=== PATIENT | male | born 1970 | race Two or more races ===

== ENCOUNTER 2022-12-27 09:42 | Emergency (ER) | payer MEDICAID, OTHER ==
[~2022-12-27] VITALS: Ht 162.6 cm; Wt 90.9 kg
[2022-12-27 10:04] LABS: Basophils # (auto) 0 10 ^3/uL (0-0.2); Basophils % (auto) 0.4 % (0.0-2.0); Eosinophils # (auto) 0.1 10 ^3/uL (0-0.8); Eosinophils % (auto) 0.7 % (0.0-7.0); Hematocrit 41.9 % (41.0-53.0); Hemoglobin 14.8 g/dL (13.5-17.5); Lymphocytes # (auto) 2.8 10 ^3/uL (0.4-5.4); Lymphocytes % (auto) 32.1 % (10.0-50.0); Mean Corpuscular Hemoglobin 29.7 pg (28.0-32.0); Mean Corpuscular Hgb Conc. 35.4 g/dL (32.0-36.0); Mean Corpuscular Volume 83.8 fL (80.0-100.0); Monocytes % (auto) 11.3 % (0.0-12.0); Neutrophils # (auto) 4.9 10 ^3/uL (1.6-8.6); Neutrophils % (auto) 55.5 % (37.0-80.0); Nucleated Red Blood Cells % 0.2 %; Red Cell Distribution Width 13.3 % (11.8-14.3); White Blood Cell 8.8 10^3/uL (4.4-10.8)
[2022-12-27 10:25] LABS: Alanine Aminotransferase 106 U/L (7-40); Albumin 4.4 g/dL (3.2-4.8); Alkaline Phosphatase 74 U/L (46-116); Anion Gap 10 (5-15); Aspartate Aminotransferase 294 U/L (13-40); BUN/Creatinine Ratio 20.9 (10.0-20.0); Blood Urea Nitrogen 24 mg/dL (9-23); Calcium 9.2 mg/dL (8.5-10.1); Carbon Dioxide 25 mmol/L (20-30); Chloride 99 mmol/L (98-107); Glucose 141 mg/dL (74-106); Sodium 134 mmol/L (136-145)
[2022-12-27 10:26] LABS: Bilirubin, Total 1.4 mg/dL (0.2-1.0); Total Protein 6.8 g/dL (5.7-8.2)
[2022-12-27 10:31] LABS: Potassium 2.9 mmol/L (3.5-5.1)
[2022-12-27] MEDS ORDERED: POTASSIUM EFFERVESENT TAB 25 MEQ PO ONE (10:45)
[2022-12-27 11:01] LABS: Magnesium 1.8 mg/dL (1.6-2.6)
[2022-12-27] MEDS ORDERED: POTA10TA51 PO (12:28)
[2022-12-27 15:35] VITALS: BP 133/76; PULSE 100; RESP 17; TEMP 97.6; O2SAT 99
== END 2022-12-27 15:37 | disposition home or self-care (01) ==
LOC: ER 09:42
DX: E87.6 Hypokalemia (principal); R00.2 Palpitations; I10 Essential (primary) hypertension; E11.9 Type 2 diabetes mellitus without complications; E78.5 Hyperlipidemia, unspecified; Z79.899 Other long term (current) drug therapy
CPT/HCPCS: 36415; 71045; 80053; 83690; 83735; 84132; 84484; 85025; 93005

== ENCOUNTER 2024-11-05 23:06 | Emergency (ER) | payer MEDICAID ==
[~2024-11-05] VITALS: Ht 162.6 cm; Wt 81.8 kg
[~2024-11-05 23:06] MED LIST: POTA-36 PO
--- NOTE | 2024-11-05 23:43 | ECG ---
[facility] Test Date: 2024-11-05 Test Time: 23:06:43 Pat Name: GEORGINA WADDELL Department: ED Room: Gender: M Photographer Model: ILYA : 1970 Requested By: EMERGENCY EMERGENCY Order Number: [id number] Reading MD: Franky Joiner Measurements Intervals [place] Rate: 96 P: 42 PA: 154 QRS: 30 QRSD: 91 T: 14 QT: 351 QTc: 444 Interpretive Statements Sinus rhythm Electronically Signed On 11-10-2024 22:42:32 PDT by Franky Joiner Please click the below link to view image of tracing.
--- NOTE | 2024-11-06 00:19 | DVH ---
EXAM: XY CHEST XRAY 1 VIEW CLINICAL HISTORY: cp TECHNIQUE: Single AP view of the chest WID: COMPARISON: XY CHEST PORTABLE on DOS: 12/27/22 FINDINGS: Lines and tubes: None Chest: The heart size and pulmonary vasculature is within normal limits. No pleural effusion, pneumothorax, or consolidation. The osseous structures are grossly intact. IMPRESSION: No acute cardiopulmonary abnormality.
[2024-11-06 00:28] LABS: Hematocrit 43.2 % (41.0-53.0); Hemoglobin 15.1 g/dL (13.5-17.5); Mean Corpuscular Hemoglobin 29.1 pg (28.0-32.0); Mean Corpuscular Volume 83.6 fL (80.0-100.0); Nucleated Red Blood Cells % 0.1 %
[2024-11-06 00:38] LABS: Chloride 100 mmol/L (98-107); Potassium 3.8 mmol/L (3.5-5.1)
[2024-11-06 00:39] LABS: Anion Gap 8 (5-15); Carbon Dioxide 27 mmol/L (20-31)
[2024-11-06 00:44] LABS: BUN/Creatinine Ratio 12.1 (10.0-20.0); Blood Urea Nitrogen 13 mg/dL (9-23)
[2024-11-06 00:45] LABS: Magnesium 2.1 mg/dL (1.6-2.6)
[2024-11-06 00:47] LABS: Sodium 135 mmol/L (136-145)
[2024-11-06 00:49] LABS: Calcium 8.3 mg/dL (8.7-10.4); Glucose 423 mg/dL (74-106)
[2024-11-06] MEDS: SODIUM CHLORIDE 0.9% 1,000 ML IV ONE (01:17)
[2024-11-06 01:20] VITALS: BP 155/96; RESP 18; TEMP 98.7; O2SAT 98
--- NOTE | 2024-11-06 01:50 | ED.PDOC ---
History of Present Illness HPI Comments 54-year-old male presents with chief complaint of chest pain, hypertension, and hyperglycemia. Significant history of noncompliance, DM, HLD, and HTN. Patient endorses on 1 day history of chest pressure and checking both his blood pressure and blood sugar is, today and noticing on them being elevated. Patient also reports a 2 day history of fever with associated nausea sensation. Patient denies having any shortness of breath, palpitation, fever, chills, nausea, vomiting, or further associated symptoms. REVIEW OF SYSTEMS: General: Fever, no chills, or fatigue HEENT: No sore throat, no earache, no congestion, no neck pain. Cardiac: Chest pain. No palpitations. Lungs: No shortness of breath, no cough. GI: Nausea, no vomiting, no diarrhea, no constipation, no abdominal pain : No dysuria, frequency, or urgency. No hematuria. Musculoskeletal: No joint pain , no joint swelling, no extremity edema. Hematology: Hypertension Endocrine: Hyperglycemia Skin: No rash, no itching. Neuro: No headache, no dizziness, no weakness PHYSICAL EXAM: General: Awake, alert and oriented. No acute distress. Skin: Skin in warm, dry and intact. Appropriate color for ethnicity. HEENT: The head is normocephalic and atraumatic. Conjunctivae are clear without exudates or hemorrhage. Sclera is non-icteric. EOM are intact. No signs of nystagmus. Eyelids are normal in appearance without swelling or lesions. Oral mucosa is pink and moist Neck: The neck is supple with normal range of motion. No JVD. Cardiac: Heart rate and rhythm are normal. No murmurs, gallops, or rubs are auscultated. Respiratory: No signs of respiratory distress. Lung sounds are clear in all lobes bilaterally without rales, rhonchi, or wheezes. Abdominal: Abdomen is soft, non-tender without distention, guarding or rigidity. Bowel sounds are present and normoactive in all four quadrants. Extremities: Upper and lower extremities are atraumatic in appearance without deformity or edema. Neurological: The patient is awake, alert and oriented to person, place, and time with normal speech. Speech is clear. There is no facial asymmetry. Psychiatric: Appropriate mood and affect. Good judgement and insight. Chief Complaint: Hyperglycemia Time Seen by MD: 23:45 Primary Care Provider: DENIES Reviewed Notes: Nurses Notes, Public Safety Dispatcher Notes, Medications, Allergies Allergies: Coded Allergies: NO KNOWN ALLERGIES (Unverified , 12/27/22) Home Meds Active Scripts Potassium Chloride (POTASSIUM CHLORIDE CR) 10 Meq Tb, 1 TAB PO DAILY, #30 TAB 5 Refills Prov:ROMARIO MOSCOSO MD 12/27/22 Information Source: Patient, Emergency Med Personnel Mode of Arrival: EMS Past Medical History PAST MEDICAL HISTORY: DM, High Lipids, HTN Surgical History: Denies all surgeries Family History Family History: Reviewed,noncontributory to illness Social History Smoker: Non-Smoker Alcohol: Denies ETOH Use Drugs: Denies Drug Use Lives In: Home Was a procedure done? Was a procedure done?: No EKG EKG : Pulse Rate (adult): 96 [place]: Normal Cardiac Rhythm: NSR Block: None Hypertrophy: None ST: Normal Comments No STEMI Differential Dx Considerations may include: Differential diagnoses considered include acute ischemic coronary syndrome, aortic dissection, cardiac tamponade, mediastinitis, pulmonary embolus, pneumothorax, tension pneumothorax, esophageal rupture, coronary artery vasospasm, myocarditis, pericarditis, pneumonia, pulmonary edema, esophageal tear, pancreatitis, aortic stenosis, dilated cardiomyopathy, hypertrophic cardiomyopathy, mitral valve prolapse, malignancy, pleuritis, pneumomediastinum, primary pulmonary hypertension, cholecystitis, esophageal spasm, esophagus, gastritis, GERD, peptic ulcer disease, costochondritis, fibromyalgia, rib fracture, herpes zoster, radicular syndromes, thoracic outlet syndrome, somatization. Hyperglycemia X-Ray, Labs, Meds, VS Vital Signs Date Time Temp Pulse Resp B/P (MAP) Pulse Ox O2 Delivery O2 Flow Rate FiO2 11/06/24 02:39 96 11/06/24 01:20 98.7 88 18 155/96 (115) 98 98.7 11/05/24 23:15 97.9 97 19 144/92 97 97.9 11/05/24 23:06 96 Lab Test 11/06/24 00:34 11/05/24 23:59 11/05/24 23:28 Range/Units Troponin I High Sensitivity < 3 L < 3 L </=54 ng/L White Blood Count 6.7 4.4-10.8 10^3/uL Red Blood Count 5.17 4.5-5.90 10^6/uL Hemoglobin 15.1 13.5-17.5 g/dL Hematocrit 43.2 41.0-53.0 % Mean Corpuscular Volume 83.6 80.0-100.0 fL Mean Corpuscular Hemoglobin 29.1 28.0-32.0 pg Mean Corpuscular Hemoglobin Concent 34.8 32.0-36.0 g/dL Red Cell Distribution Width 12.7 11.8-14.3 % Platelet Count 205 140-450 10^3/uL Mean Platelet Volume 7.5 6.9-10.8 fL Neutrophils (%) (Auto) 59.2 37.0-80.0 % Lymphocytes (%) (Auto) 30.0 10.0-50.0 % Monocytes (%) (Auto) 9.0 0.0-12.0 % Eosinophils (%) (Auto) 1.4 0.0-7.0 % Basophils (%) (Auto) 0.4 0.0-2.0 % Neutrophils # (Auto) 4.0 1.6-8.6 10 ^3/uL Lymphocytes # (Auto) 2.0 0.4-5.4 10 ^3/uL Monocytes # (Auto) 0.6 0-1.3 10 ^3/uL Eosinophils # (Auto) 0.1 0-0.8 10 ^3/uL Basophils # (Auto) 0 0-0.2 10 ^3/uL Nucleated Red Blood Cells 0.1 % Sodium Level 135 L 136-145 mmol/L Potassium Level 3.8 3.5-5.1 mmol/L Chloride Level 100 98-107 mmol/L Carbon Dioxide Level 27 20-31 mmol/L Anion Gap 8 5-15 Blood Urea Nitrogen 13 9-23 mg/dL Creatinine 1.07 0.700-1.30 mg/dL Glomerular Filtration Rate Calc 83 >90 mL/min BUN/Creatinine Ratio 12.1 10.0-20.0 Serum Glucose 423 *H 74-106 mg/dL Calcium Level 8.3 L 8.7-10.4 mg/dL Magnesium Level 2.1 1.6-2.6 mg/dL B-Type Natriuretic Peptide 3.01 0-100 pg/mL Beta-Hydroxybutyric Acid 0.199 < 0.4 mmol/L POC Glucose 451 *H 70-106 mg/dl Current Medications Medications (Trade) Dose Ordered Sig/Kiarra Route Start Time Stop Time Status Last Admin Sodium Chloride 1,000 ml @ 1,000 mls/hr Q1H ONCE IV 11/06/24 00:00 11/06/24 00:59 DC 11/06/24 01:[address] [address] Ph: [phone] DIAGNOSTIC IMAGING Diagnostic Imaging Report : [id number] Signed PATIENT: GEORGINA WADDELL ACCT: [id number] UNIT: [id number] : 1970 LOC: ER ROOM / BED: / AGE / SEX: 54 / M ADM STATUS: REG ER SERVICE 061 ORDERING PHYSICIAN: ANN HUTSON MD PROCEDURE(s): CXR1 - CHEST XRAY 1 VIEW REASON: cp ORDER NUMBER(s): [id number], ACCESSION NUMBER(s): [id number] EXAM: XY CHEST XRAY 1 VIEW CLINICAL HISTORY: cp TECHNIQUE: Single AP view of the chest WID: COMPARISON: XY CHEST PORTABLE on DOS: 12/27/22 FINDINGS: Lines and tubes: None Chest: The heart size and pulmonary vasculature is within normal limits. No pleural effusion, pneumothorax, or consolidation. The osseous structures are grossly intact. IMPRESSION: No acute cardiopulmonary abnormality. ATED BY: DAE CHIU MD DICTATED DATE/TIME: 11/06/2416 SIGNED BY: DAE CHIU MD SIGNED DATE/TIME: 11/06/2416 CC: Time of 1ST Reevaluation: 00:15 Reevaluation 1ST: Unchanged Patient Education/Counseling: Need For Follow Up Family Education/Counseling: No Family Present SEPSIS Sepsis Screen Date sepsis recognized/suspect: Nov 05, 2024 Time Sepsis recognized/suspect: 2316 Recent Procedure: No On Antibiotic Therapy: No Respiratory Rate >20: No Heart Rate >90: No Temp<36 C (96.8 F) or >38.3 C: No SBP <90 or MAP <65 mmHG: No New Acute Mental Status Change: No Is the patient on CPAP, BIPAP,: No Physician Orders Chest Xray 1 View (11/05/24 23:49) Urinalysis (11/05/24 23:49) Vital Signs Date Time Temp Pulse Resp B/P (MAP) Pulse Ox O2 Delivery O2 Flow Rate FiO2 11/06/24 02:39 96 11/06/24 01:20 98.7 88 18 155/96 (115) 98 98.7 11/05/24 23:15 97.9 97 19 144/92 97 97.9 11/05/24 23:06 96 Laboratory Tests Test 11/05/24 23:59 White Blood Count 6.7 10^3/uL (4.4-10.8) Medications Medications Dose Ordered Sig/Kiarra Route Start Time Stop Time Status Last Admin Dose Admin Sodium Chloride 1,000 ml @ 1,000 mls/hr Q1H ONCE IV 11/06/24 00:00 11/06/24 00:59 DC 11/06/24 01:17 Departure 1 Departure Time of Disposition: 01:48 Impression: Primary Impression: Chest pain Additional Impression: Hyperglycemia Disposition: HOME / SELF CARE / HOMELESS Condition: Stable Additional Instructions: ED DISCHARGE INSTRUCTIONS Instructions: Please read all instructions provided in this packet carefully. Although you have been discharged from the Emergency Department, this does not mean that you have a "clean bill of health". No definitive diagnosis for your symptoms has been made today. It is possible that you are in the process of developing a serious illness. This is why you must return to the ED without fail if any new or worsening symptoms (especially if your symptoms include chest pain, trouble breathing, abdominal pain, fever, headache, confusion, trouble seeing, or trouble walking) It is also very important that you see a primary care provider (PCP) within the next 3-5 days to follow up. If you are unable to get an appointment, return to the ED for re-evaluation. CHEST PAIN EDUCATION There are many things that can cause chest pain. Some are not serious and will get better on their own in a few days. But some kinds of chest pain need more testing and treatment. Your doctor may have recommended a follow-up visit in the next few days. If you are not getting better, you may need more tests or treatment. Even though your doctor has released you, you still need to watch for any problems. The doctor carefully checked you, but sometimes problems can develop later. If you have new symptoms or if your symptoms do not get better, get medical care right away. If you have worse or different chest pain or pressure that lasts more than 5 minutes or you passed out (lost consciousness), call 911 or seek other emergency help right away. A medical visit is only one step in your treatment. Even if you feel better, you still need to do what your doctor recommends, such as going to all suggested follow-up appointments and taking medicines exactly as directed. This will help you recover and help prevent future problems. How can you care for yourself at home? Rest until you feel better. Take your medicine exactly as prescribed. Call your doctor if you think you are having a problem with your medicine. Do not drive after taking a prescription pain medicine. When should you call for help? Call 911 if: You passed out (lost consciousness). You have severe difficulty breathing. You have symptoms of a heart attack. These may include: Chest pain or pressure, or a strange feeling in your chest. Sweating. Shortness of breath. Nausea or vomiting. Pain, pressure, or a strange feeling in your back, neck, jaw, or upper belly or in one or both shoulders or arms. Lightheadedness or sudden weakness. A fast or irregular heartbeat. After you call 911, the earth boring machine operator may tell you to chew 1 adult-strength or 2 to 4 low-dose aspirin. Wait for an ambulance. Do not try to drive yourself. Call your doctor now or seek immediate medical care if: You have any trouble breathing. You have new or different chest pain. You are dizzy or lightheaded, or you feel like you may faint. Watch closely for changes in your health, and be sure to contact your doctor if you do not get better as expected. Current as of: October 24, 2023 Author: [employer] Staff? Diabetes: Preventing High Blood Sugar Emergencies Introduction High blood sugar in diabetes occurs when the sugar (glucose) level in the blood rises above normal. It is also called hyperglycemia. When you have diabetes, high blood sugar may be caused by not getting enough insulin or missing your diabetes medicine. It may also be caused by eating too much food, skipping exercise, or being ill or stressed. Unlike low blood sugar, high blood sugar usually happens slowly over hours or days. Blood sugar levels above your target range may make you feel tired and thirsty. If your blood sugar keeps rising, your kidneys will make more urine and you can get dehydrated . Signs of dehydration include being thirstier than usual and having darker urine than usual. Without treatment, severe dehydration can be life-threatening. Over time, high blood sugar can damage the eyes, heart, kidneys, blood vessels, and nerves. Watch for symptoms of high blood sugar. Symptoms include feeling very tired or thirsty and urinating more often than usual. As long as you notice the symptoms, you will probably have time to treat high blood sugar so that you can prevent an emergency. Three things can help you prevent high blood sugar problems: Test your blood sugar often, especially if you are sick or not following your normal routine. Testing lets you see when your blood sugar is above your target range, even if you don't have symptoms. Then you can treat it early. Call your doctor if you often have high blood sugar or your blood sugar is often above your target range. Your medicine may need to be adjusted or changed. Drink extra water or drinks that don't have caffeine or sugar to prevent dehydration. How do you prevent high blood sugar emergencies? Treat infections early Infections that aren't treated (such as urinary tract infections, pneumonia, and skin infections) can raise your risk for a high blood sugar emergency. Be prepared Know the symptoms of high blood sugar. They include feeling very thirsty, feeling very tired, and urinating more than usual. Post a list of the symptoms in a place where you can see it often, such as on your refrigerator door. Add any symptoms you have noticed that may not be on the list. Make sure other people know the symptoms. Teach them what to do in case of an emergency. Check your blood sugar at home often, especially if you are sick or not following your normal routine. If you don't have a blood sugar meter, talk with your doctor about getting one. It is easy to miss the early symptoms, especially if you urinate more than usual but aren't more thirsty. Testing your blood sugar at home will help you know when it is high, even if you don't notice symptoms. Teach others (at work and at home) the symptoms of high blood sugar. Teach them to call 911 if you are unconscious or too sick to check your own blood sugar. Wear medical identification. Have a medical alert bracelet or other form of medical jewelry with you at all times. This is very important in case you are too sick or injured to speak for yourself. You can find medical identification at a drugstore or on the Internet. If you take insulin, test for ketones, especially if your blood sugar is high. Make a plan. Usually people who take insulin need to take extra fast-acting insulin when their blood sugar levels are high. Talk with your doctor about how much to take. This depends on your blood sugar level (sliding scale). Take your medicines as prescribed. Don't skip diabetes medicine or insulin doses without first talking with your doctor. Treat high blood sugar early The best way to prevent high blood sugar emergencies is to treat high blood sugar as soon as you have symptoms or when your blood sugar is well above your target range (for example, 200 mg/dL or higher). Follow your doctor's instructions for the steps for dealing with high blood sugar. Post the steps in a handy place at home and work. Make sure other people know what to do if you are unable to treat high blood sugar. Keep a record of high blood sugar levels. Write down your symptoms and how you treated them. And take the record with you when you see your doctor. Call your doctor. Let your doctor know if you have high blood sugar problems. Your diabetes medicine may need to be adjusted or changed. If you take insulin, your dose of insulin may need to be increased. Drink plenty of liquids If your blood sugar levels are above your target range, drink extra liquids. This helps replace the fluids lost through your urine. Water and sugar-free drinks are best. Avoid caffeinated drinks, alcohol, and soda pop. And avoid other drinks that have a lot of sugar, such as fruit juice. Comments MDM: 54-year-old male with chest pain and hyperglycemia. EKG negative for signs of ischemia. High sensitivity troponin negative. CXR shows no acute process. Presentation not suggestive of DKA, acute coronary syndrome, pulmonary embolism or aortic dissection. Patient improved at time of discharge. Patient has not been hypoxic, in respiratory distress or dyspneic during the ED observation. Patient able to ambulate without difficulty. Patient felt stable for discharge to follow up with PCP promptly. Patient advised to return to the ED with any new, worsening or concerning symptoms or inability to follow up with PCP. Patient was offered admission for further treatment, observation and evaluation. Discussed risks, benefits and return precautions with the patient. The patient is declined admission and is requesting to be discharged home to follow up with the primary care provider as an outpatient. Extensive evaluation was performed in attempt to identify or rule out: (See differential diagnosis section) The following tests were ordered, and results were reviewed by me and discussed with patient: (See diagnostic results section) The following test were independently interpreted by me: EKG I reviewed and agreed with the following test results read by other providers: Chest x-ray I reviewed the following notes from the pt's past medical encounters: December 27, 2022 encounter for hyperkalemia Additional information was gathered from interviewing the following independent historians: EMS personnel Decision regarding hospitalization or escalation of hospital level of care: Risks and benefits of admission for further treatment of patient's condition was considered however due to patient's stable condition patient will be discharged to follow up closely or return to care for worsening of condition or inability to follow up. Critical Care Note Critical Care Time?: No Stability Stability form required: No Heart Score Heart Score: Heart Score Response (Comments) Value History Moderate Suspicious 1 EKG Normal 0 Age 45-64 1 Risk Factors 1 or 2 risk factors 1 Troponin Normal limit 0 Total 3 I personally scribed for ANN HUTSON MD ([email or web address]) on 11/06/24 at 02:39. Electronically submitted by Nato Moscoso ([email or web address]). ANN HUTSON MD Nov 06, 2024 01:50
[2024-11-06 02:39] VITALS: PULSE 96
== END 2024-11-06 02:52 | disposition home or self-care (01) ==
LOC: ER 23:06 → EDBD 23:06 → ER 11-06 02:52
DX: E11.65 Type 2 diabetes mellitus with hyperglycemia (principal); R07.89 Other chest pain; E78.5 Hyperlipidemia, unspecified; I10 Essential (primary) hypertension; Z87.440 Personal history of urinary (tract) infections; Z79.899 Other long term (current) drug therapy
CPT/HCPCS: 36415; 71045; 80048; 82010; 82947; 83735; 83880; 84484; 85025; 93005; 96360; 99285; J7030; 82962